=== PATIENT | female | born 1960 | race Caucasian/White ===

== ENCOUNTER 2019-05-10 07:02 | Day surgery (SDC) | payer BC ==
--- NOTE | 2019-05-02 16:15 | HP ---
CC: Nancy Rivas NP; Dr. Bay Fernando * PREOPERATIVE HISTORY AND PHYSICAL: DATE OF ADMISSION/SURGERY: 05/10/19 This patient is scheduled for same-day surgery admission by Dr. Landeros on , 05/10/19. DATE OF EXAMINATION: 05/02/19. ATTENDING PHYSICIAN: Dr. Bambi Landeros * (dictated by Audrey Anna NP ). CHIEF COMPLAINT: Right breast cancer. HISTORY OF PRESENT ILLNESS: The patient is a 59-year-old female, referred to Dr. Landeros for evaluation of right breast cancer. She had a routine screening mammogram on 04/09/19 which showed an irregular margined lesion at the 10 o' clock position in the right breast approximately 10 cm from the nipple. This prompted a core biopsy, which revealed invasive ductal adenocarcinoma of the right breast. The patient has not noticed any changes in her breast and she denies breast pain or nipple discharge or change in the shape or contour of the right breast. She has never had radiation to the chest and has never had previous breast biopsy. She does have a family history of breast cancer in her sister who was diagnosed at about age 60 and underwent chemotherapy and radiation and is currently doing well. She thinks that her maternal grandmother may have had breast cancer. There is no known family history of ovarian cancer. She was on control pills briefly 35 years ago; she was around age 15 when she had her first menstrual period; she was 23 at the of her first child and she did breastfeed; she was 57 when she went through menopause. Dr. Landeros has examined the patient and reviewed her imaging and pathology report; Dr. Landeros discussed the nature of breast cancer, the optional methods of surgical treatment, the relevant risks and benefits and the patient has opted for needle localization excision of the right breast cancer and sentinel lymph node biopsy. Today, I reviewed the typical postoperative care and recovery. The patient has had a chance to ask questions and stated that she understands the information and is satisfied with the answers given to her questions. She will sign surgical consent on the day of surgery. PAST MEDICAL HISTORY: Generally healthy. No acute or chronic conditions. PAST SURGICAL HISTORY: No previous surgery. OB HISTORY: 4, para 3, miscarriage 1. She is up to date with pelvic and Pap smear and is postmenopausal. MEDICATIONS: None currently. ALLERGIES: No known drug allergies. No food allergies. FAMILY HISTORY: The patient's sister with a history of breast cancer and thyroid cancer, she is alive and well at age 62. Possibly, maternal grandmother had breast cancer. No family history of ovarian cancer. No known anesthesia complications. No history of bleeding or clotting disorders. 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 She is a nonsmoker. She rarely drinks alcohol and denies the use of other substances. REVIEW OF SYSTEMS: Constitutional: No fevers, chills, excessive fatigue, or weight loss. General: No history of deep vein thrombosis or pulmonary embolism ; no previous anesthesia complications. She underwent colonoscopy with sedation without difficulty. She has never had general anesthesia; she has never received a blood transfusion. Endocrine: No diabetes. She is followed for a benign thyroid nodule and in the past has had a biopsy and followup ultrasounds. Hematologic: No easy bruising or bleeding. Breasts: Abnormal right breast lesion. Respiratory: No dyspnea on exertion. No chronic cough. Cardiovascular: No anginal chest pain or palpitations. Gastrointestinal: No nausea, vomiting, diarrhea, GI bleeding, or chronic constipation. More recently , she has noticed a slight change in her bowel habits and has been a little more constipated and we discussed the use of MiraLAX today. Genitourinary: No dysuria. No vaginal discharge. Musculoskeletal: Normal strength and tone. Integumentary: No chronic rashes or skin changes. No history of MRSA infections. Neurologic: No headache or blurred vision. Psychiatric: No insomnia or depression. PHYSICAL EXAMINATION GENERAL SURVEY: The patient is a 59-year-old female, well developed, obese, in no acute distress. VITAL SIGNS: Height 66 inches, weight 197 pounds, body mass index 31.8. Blood pressure 134/74, pulse 68 and regular, respiratory rate 16, temperature 98.1 tympanic. HEENT: Benign. NECK: Supple. No cervical lymphadenopathy. No supraclavicular lymphadenopathy. No thyromegaly. BACK: No CVA tenderness. BREASTS: Symmetric. No skin dimpling or nipple retraction. No axillary adenopathy. Palpation of the right breast reveals no discrete masses. Palpation of the left breast reveals no discrete masses. LUNGS: Breath sounds bilaterally clear and equal. HEART: Regular rate and rhythm. No murmurs or rubs appreciated. ABDOMEN: Active bowel sounds. Soft, nondistended, nontender throughout. No obvious masses, organomegaly, or evidence of ventral hernia. PELVIC: Deferred. RECTAL: Deferred. EXTREMITIES: Warm, without edema or skin ulceration. NEUROLOGIC: Alert and oriented x3. Steady gait. SKIN: Warm, dry, intact. IMPRESSION: Right breast cancer. PLAN: Same-day surgery admission to Dr. Landeros's service on , 05/10/19 for needle localization excision of right breast cancer and sentinel lymph node biopsy. YARIEL ANNA, MANAGER OF EXHIBITIONS AND COLLECTIONS [id number]/[facility] #: [id number] NONI
[~2019-05-10 07:02] MED LIST: Buffered Lidocaine 1% SYRIN* 1 ML/SYRINGE INTRADERM ONE; Dexamethasone IV* 4 MG/ML 1 ML (4 MG) IV SLOW PU ONE; Famotidine IV* 10 MG/ML 2 ML (20 mg) IV ONE; Lactated Ringers 1000 ML Bag* 1,000 ML IV SCH
[2019-05-10] MEDS ORDERED: Buffered Lidocaine 1% SYRIN* 1 ML/SYRINGE INTRADERM ONE (07:16)
[2019-05-10] MEDS ORDERED: Lidocaine 2.5%/Prilocain 2.5%* 5 GM TUBE ONE (07:16)
[2019-05-10] MEDS ORDERED: Midazolam* 1 MG/ML 5 ML VIAL (5 MG) ONE (12:15)
[2019-05-10] MEDS ORDERED: fentaNYL* 50 MCG/ML 2 ML VIAL (100 MCG VIAL) ONE (12:15)
[2019-05-10] MEDS ORDERED: Propofol* 10 MG/ML 20 ML BTL ONE ×3 (12:15→14:12)
[2019-05-10] MEDS ORDERED: Lidocaine 2% PF * 5 ML VIAL ONE (12:16)
[2019-05-10] MEDS ORDERED: Heparin VIAL(*) 5000 UNITS/ML VIAL (FIVE THOUSAND) ONE (12:20)
[2019-05-10] MEDS ORDERED: Dexamethasone IV* 4 MG/ML 1 ML (4 MG) ONE (12:20)
[2019-05-10] MEDS ORDERED: ceFAZolin 2 GM in NS PREMIX(*) 2 GM/100 ML BAG IVPB ONE (12:21)
[2019-05-10] MEDS ORDERED: Famotidine IV* 10 MG/ML 2 ML (20 mg) ONE (12:21)
[2019-05-10] MEDS ORDERED: Naloxone* 0.4 MG/ML 1 ML VIAL IV PRN (12:30)
[2019-05-10] MEDS ORDERED: HYDROcodone/ACETAMIN 5-325 MG* 1 TAB PO PRN ×3 (12:30→15:01)
[2019-05-10] MEDS ORDERED: DiMENhydriNATE IV* 50 MG/ML VIAL IV PUSH PRN (12:30)
[2019-05-10] MEDS ORDERED: oxyCODONE/Acetamin 5/325 MG* TAB PO PRN (12:30)
[2019-05-10] MEDS ORDERED: fentaNYL* 50 MCG/ML 2 ML VIAL (100 MCG VIAL) IV PRN (12:30)
[2019-05-10] MEDS ORDERED: Bupivacaine 0.5%* 50 ML VIAL ONE (12:31)
[2019-05-10] MEDS ORDERED: Lidocaine 1% INJ* 10 MG/ML 30 ML SDV ONE (12:31)
[2019-05-10 12:55] LABS: Albumin 4.1 g/dL (3.2-5.2); Albumin/Globulin Ratio 1.4 (1-3); BUN/Creatinine Ratio 12.9 (8-20); Calcium 9.7 mg/dL (8.6-10.3); EGFR African American 104.4 (>60); EGFR Non-African American 86.2 (>60); Potassium 3.8 mmol/L (3.5-5.0); Total Protein 7.1 g/dL (6.4-8.9)
[2019-05-10] MEDS ORDERED: Bupivacaine 0.5% W/EPI SDV* 30 ML VIAL ONE (13:03)
[2019-05-10] MEDS ORDERED: Bupivacaine 0.25% EPI 200,000* 30 ML SDV ONE (13:03)
[2019-05-10] MEDS ORDERED: Ondansetron INJ* 2 MG/ML VIAL ONE (14:31)
--- NOTE | 2019-05-10 14:59 | BRIEFOPN ---
Brief Operative Note - Surgery Procedures: Procedures ARTIF RUPT MEMBRANES NEC (11/10/93) COLONOSCOPY (10/23/12) MONITORING NOS (11/10/93) REPAIR OB LACERATION NEC (11/10/93) 05/10/19 Op Note (dictated) Pre-op dx: right breast cancer Post-op dx: same Procedure: needle localization excision of right breast cancer and sentinel lymph node biopsy Surgeon: Tigre Asst: none Anesth: local-MAC EBL: 20 cc complications: none SCDs on during surgery Abx: given pre-op Pt. tolerated procedure well and was transferred to in a stable condition. CLFoster
[2019-05-10 15:56] VITALS: BP 137/97
--- NOTE | 2019-05-10 17:56 | OP ---
CC: Dr. Bay Fernando; Nancy Rivas NP DATE OF OPERATION: 05/10/19 - [facility] DATE OF : 64 SURGEON: Bambi Landeros MD ALLERGY SPECIALIST: There was no assistant brand manager for this case. PRE-OP DIAGNOSIS: Right breast cancer. POST-OP DIAGNOSIS: Right breast cancer. OPERATIVE PROCEDURE: Needle localization and excision of right breast cancer and sentinel lymph node biopsy. INDICATIONS: Ms. Norton is a 59-year-old woman recently diagnosed with breast cancer prompting the plan for surgical intervention. On the morning of surgery , she underwent needle localization and sentinel lymph node localization without difficulty. DESCRIPTION OF PROCEDURE: She was then brought to the operating room, placed on the OR table in the supine position and given IV sedation. The right breast was prepped and draped in the usual sterile fashion taking care not to dislodge the localizing wire. After infiltrating with local anesthetic, a curvilinear incision was made in an elliptical fashion so as to encompass the wire. Subcutaneous tissue was then divided with electrocautery to excise the mass of tissue from around the wire. Some bleeding that was noted laterally was controlled with suture ligature. Otherwise, once the specimen was out, it was handed off with the usual markings. Hemostasis was then assured with electrocautery and once this appeared adequate, the wound was irrigated with saline and marked with clips. Additional local was instilled in the wound. Closure was then accomplished with 3-0 Vicryl in the subcutaneous layer and the skin was closed with 4-0 Prolene in a subcuticular fashion. Steri-Strips and a dry sterile dressing were applied at the end of the case. Attention was then turned to the axilla. The navigator was used to locate the approximate site of the sentinel node and then local anesthetic was instilled into this region and an incision was made. Subcutaneous tissue was divided with electrocautery down to the level of the axillary fat pad. Then using the navigator, the sentinel lymph node was identified. Its in situ counts were around 700. Its ex vivo counts were around 800. It was removed using clips to control small blood and lymphatic vessels that approached it and blunt and sharp dissection were carried out to remove the sentinel node. The axillary bed counts were 1. The wound was irrigated with saline. Some additional local was instilled into the wound and then closure was accomplished with 3-0 Vicryl in the subcutaneous layer and the skin was closed with 4-0 Prolene in a subcuticular fashion. Steri -Strips and a dry sterile dressing were applied here as well. All sponge and instrument counts were correct. The patient tolerated the procedure well and was transferred to Recovery in a stable condition. [id number]/[facility] #: [id number] MTDDarya
== END 2019-05-10 15:57 | disposition home or self-care (01) ==
LOC: OR 07:02
PROVIDERS: ATTEND Surgery
DX: C50.911 Malignant neoplasm of unspecified site of right female breast (principal)
CPT/HCPCS: 36415; 77061; 78195; 80053; 88307; 88342; A9270-GY; A9541; G0279; J0690; J1100; J1644; J2250; J2405; J2704; J3010; J3490